=== PATIENT | female | born 1990 | race Caucasian/White ===

== ENCOUNTER 2016-06-04 02:53 | Emergency (ER) | payer OTHER ==
[2016-06-04 03:15] VITALS: BP 107/87; PULSE 67; TEMP 97.9; BMI 16.9
[2016-06-04] MEDS ORDERED: ONDANSETRON 4 MG/2 ML VIAL IVPUSH ONE (03:32)
--- NOTE | 2016-06-04 03:32 | PDOC ---
History of Present Illness - History of Present Illness Initial Comments: 06/04/16 03:59 Patient is a 26 year old female with significant medical hx of gastroparesis who is presenting to the ED with nausea and vomiting for several weeks. The patient has been having multiple episodes of nausea and vomiting per day; she is only able to tolerate oral intake on occasion. She is complaining of associated muscle cramping and dehydration. The patient is requesting fluids and electrolytes checked; she states that medication often worsens her symptoms. Denies fever, chills, or any other symptoms. <Shanika Cagle - Last Filed: 06/04/16 03:59> <Caesar Garcia - Last Filed: 06/04/16 05:10> - General Chief Complaint: Nausea/Vomiting Stated Complaint: VOMITING Past History <Shanika Cagle - Last Filed: 06/04/16 03:59> - Immunization History Immunization Up to Date: Yes - Psycho/Social/Smoking Cessation Hx Anxiety: Yes Suicidal Ideation: No Smoking History: Unknown if ever smoked Have you smoked in the past 12 months: No Number of Cigarettes Smoked Daily: 0 Cigars Per Day: 0 Information on smoking cessation initiated: No Hx Alcohol Use: No Drug/Substance Use Hx: No Substance Use Type: None <Caesar Garcia - Last Filed: 06/04/16 05:10> - Past Medical History Allergies/Adverse Reactions: Allergies Allergy/AdvReac Type Severity Reaction Status Date / Time No Known Allergies Allergy Verified 06/04/16 03:10 Home Medications: Ambulatory Orders NK [No Known Home Medication] 12/11/15 Review of Systems - Review of Systems Comments:: 06/04/16 04:01 GENERAL/CONSTITUTIONAL: Dehydration. No fever or chills. No weakness. HEAD, EYES, EARS, NOSE AND THROAT: No change in vision. No ear pain or discharge. No sore throat. CARDIOVASCULAR: No chest pain or shortness of breath. RESPIRATORY: No cough, wheezing, or hemoptysis. GASTROINTESTINAL: Nausea, vomiting. No diarrhea or constipation. GENITOURINARY: No dysuria, frequency, or change in urination. MUSCULOSKELETAL: Muscle cramping. No joint or muscle swelling. No neck or back pain. SKIN: No rash NEUROLOGIC: No headache, vertigo, loss of consciousness, or change in strength/ sensation. <Shanika Cagle Last Filed: 06/04/16 03:59> *Physical Exam - Vital Signs Last Vital Signs Temp Pulse Resp BP Pulse Ox 97.9 F 67 18 107/87 100 06/04/16 03:10 06/04/16 03:10 06/04/16 03:10 06/04/16 03:10 06/04/16 03:10 - Physical Exam Comments: 06/04/16 04:02 GENERAL: Dehydrated. Awake, alert, and fully oriented, in no acute distress HEAD: No signs of trauma EYES: PERRLA, EOMI, sclera anicteric, conjunctiva clear ENT: Auricles normal inspection, hearing grossly normal, nares patent, oropharynx clear without exudates. Dry mucosa FACE: Brent cheeks NECK: Normal ROM, supple, no lymphadenopathy, JVD, or masses LUNGS: Breath sounds equal, clear to auscultation bilaterally. No wheezes, and no crackles HEART: Regular rate and rhythm, normal S1 and S2, no murmurs, rubs or gallops ABDOMEN: Soft, nontender, normoactive bowel sounds. No guarding, no rebound. No masses EXTREMITIES: Normal range of motion, no edema. No clubbing or cyanosis. No cords, erythema, or tenderness NEUROLOGICAL: Cranial nerves II through XII grossly intact. Normal speech, normal gait SKIN: Warm, Dry, normal turgor, no rashes or lesions noted. ENDOCRINE: No increased thirst. No abnormal weight change. HEMATOLOGIC/LYMPHATIC: No anemia, easy bleeding, or history of blood clots. ALLERGIC/IMMUNOLOGIC: No hives or skin allergy. <Shanika Cagle - Last Filed: 06/04/16 03:59> - Vital Signs Last Vital Signs Temp Pulse Resp BP Pulse Ox 97.9 F 67 18 107/87 100 06/04/16 03:10 06/04/16 03:10 06/04/16 03:10 06/04/16 03:10 06/04/16 03:10 <Caesar Garcia - Last Filed: 06/04/16 05:10> ED Treatment Course - LABORATORY CBC & Chemistry Diagram: 06/04/16 04:10 06/04/16 04:10 <Caesar Garcia - Last Filed: 06/04/16 05:10> Medical Decision Making - Medical Decision Making 03/27/17 05:02 This is a 26yo F with h/o idiopathic gastroparesis and multiple episodes of n/v over the last two weeks. She feels as though her muscles are achy which is what she says she has experienced with low potassium. She has a mildly low K and would benefit from PO KCl 40mEq. She is refusing any and all antiemetics and would appreciate parenteral hydration. Clinically and objectively, she appears mildly dry and will be given NS. Will encourage close follow up with PMD within the next 48 hours and return if there is any change of symptoms. <Caesar Garcia - Last Filed: 06/04/16 05:10> *DC/Admit/Observation/Transfer - Attestations Scribe Attestion: 06/04/16 04:04 Documentation prepared by Shanika Cagle, acting as medical technologist hematology for Caesar Garcia MD. <Shanika Cagle - Last Filed: 06/04/16 03:59> - Discharge Dispostion Admit: No Decision to Admit order Date/Time: 06/04/16 05:00 <Caesar Garcia - Last Filed: 06/04/16 05:10> Diagnosis at time of Disposition: Nausea & vomiting Qualifiers: Vomiting type: unspecified Vomiting Intractability: non-intractable Qualified Code(s): R11.2 - Nausea with vomiting, unspecified - Discharge Dispostion Disposition: HOME Condition at time of disposition: Good - Referrals Referrals: STAFF,NOT ON [Primary Care Provider] - - Patient Instructions Additional Instructions: Please follow up with your PMD within the next 48 hours and if there is any change otherwise in your symptoms, please return immediately to the ED. Please make every effort to hydrate yourself as much as possible.
[2016-06-04 04:19] LABS: BASOPHIL 0.7 % (0-2.0); EOSINOPHIL 1.2 % (0-4.5); MCHC 34.5 g/dl (32.0-36.0); MEAN CELL VOLUME 86.8 fl (80-96); MEAN PLT VOLUME 7.1 fl (7.5-11.1); NEUTROPHILS 63.7 % (42.8-82.8); PLATELET COUNT 426 K/MM3 (134-434); RDW 13.5 % (11.6-15.6); WHITE BLOOD COUNT 6.7 K/mm3 (4.0-10.0)
[2016-06-04] MEDS ORDERED: SODIUM CHLORIDE 1,000 ML IV ONE (04:19)
[2016-06-04 04:45] LABS: ALBUMIN 4.4 g/dl (3.4-5.0); ALK PHOS 82 U/L (45-117); ANION GAP 12 (8-16); BILIRUBIN,TOTAL 0.9 mg/dL (0.2-1.0); CALCIUM 9.7 mg/dL (8.5-10.1); CO2 34 mmol/L (21-32); CREATININE 0.7 mg/dL (0.55-1.02); GLUCOSE,RANDOM 85 mg/dL (74-106); MAGNESIUM 2.9 mg/dL (1.8-2.4); SGPT/ALT 15 U/L (12-78); TOT PROT 8.1 g/dl (6.4-8.2)
[2016-06-04 04:51] LABS: SGOT/AST 21 U/L (15-37)
[2016-06-04] MEDS ORDERED: POTASSIUM CHLORIDE TABS 20 MEQ TABLET.ER (FP) PO ONE ×2 (04:53→04:55)
[2016-06-04] MEDS ORDERED: POTASSIUM CHLORIDE 40 MEQ/30 ML UNIT DOSE CUP ONE (04:57)
[2016-06-04] MEDS ORDERED: POTASSIUM CHLORIDE 40 MEQ/30 ML UNIT DOSE CUP PO ONE (05:01)
== END 2016-06-04 06:17 | disposition home or self-care (01) ==
LOC: JER 02:53
PROC: 3E0337Z Introduction of Electrolytic and Water Balance Substance into Peripheral Vein, Percutaneous Approach (ICD-10-PCS; principal; 2016-06-04)
DX: R11.2 Nausea with vomiting, unspecified (principal); K31.84 Gastroparesis; M79.1 Myalgia; E87.6 Hypokalemia; E86.0 Dehydration
CPT/HCPCS: 36415; 80053; 83735; 84100; 85025; 99282-25

== ENCOUNTER 2016-07-29 01:10 | Emergency (ER) | payer OTHER ==
--- NOTE | 2016-07-29 02:01 | PDOC ---
History of Present Illness - General History Source: Patient Exam Limitations: No Limitations - History of Present Illness Initial Comments: 07/29/16 01:58 26yo Female patient presents to ED requesting that her electrolytes be checked. Patient states she has been vomiting for the past month. This patient has been to this ED numerous times for the same request. She states her PCP will not honor her request. She denies any other complaints at this time. <Hannah Lewis - Last Filed: 07/29/16 01:56> <Loren France - Last Filed: 07/29/16 03:42> - General Stated Complaint: VOMITING/NEEDS ELECTROLYTES CHECKED Time Seen by Provider: 07/29/16 01:17 Past History - Travel Traveled outside of the country in the last 30 days: No Close contact w/someone who was outside of country & ill: No - Immunization History Immunization Up to Date: Yes - Psycho/Social/Smoking Cessation Hx Anxiety: Yes Suicidal Ideation: No Smoking History: Unknown if ever smoked Have you smoked in the past 12 months: No Number of Cigarettes Smoked Daily: 0 Cigars Per Day: 0 Hx Alcohol Use: No Drug/Substance Use Hx: No Substance Use Type: None <Hannah Lewis - Last Filed: 07/29/16 01:56> <Loren France - Last Filed: 07/29/16 03:42> - Past Medical History Allergies/Adverse Reactions: Allergies Allergy/AdvReac Type Severity Reaction Status Date / Time No Known Allergies Allergy Verified 07/29/16 03:32 Home Medications: Ambulatory Orders NK [No Known Home Medication] 12/11/15 Review of Systems - Review of Systems Able to Perform ROS?: Yes Is the patient limited [place]an proficient: No Constitutional: No: Symptoms Reported, See HPI, Chills, Diaphoresis, Fever, Loss of Appetite, Malaise, Night Sweats, Weakness, Weight Stable, Unintentional Wgt. Loss, Unexplained wgt Loss, Other Respiratory: No: Symptoms reported, See HPI, Cough, Orthopnea, Shortness of Breath, SOB with Exertion, SOB at Rest, Stridor, Wheezing, Productive cough, Hemoptysis, Other Cardiac (ROS): No: Symptoms Reported, See HPI, Chest Pain, Edema, Irregular Heart Rate, Lightheadedness, Palpitations, Syncope, Chest Tightness, Other ABD/GI: Yes: Nausea, Vomiting. No: Symptoms Reported, See HPI, Abdominal Distended, Abd. Pain w/ defecation, Blood Streaked Bowels, Constipated, Diarrhea , Difficulty Swallowing, Poor Appetite, Poor Fluid Intake, Rectal Bleeding, Indigestion, Abdominal cramping, Tarry Stools, Other : No: Symptoms Reported, See HPI, Burning, Dysuria, Discharge, Frequency, Flank Pain, Hematuria, Incontinence, Pain, Urgency, Testicular Mass, Testicular Swelling, Lesions, Testicular Pain, Other Musculoskeletal: No: Symptoms Reported, See HPI, Back Pain, Gout, Joint Pain, Joint Swelling, Muscle Pain, Muscle Weakness, Neck Pain, Joint Stiffness, Other All Other Systems: Reviewed and Negative <Hannah Lewis - Last Filed: 07/29/16 01:56> *Physical Exam - Physical Exam General Appearance: Yes: Nourished, Appropriately Dressed. No: Apparent Distress, Mild Distress, Moderate Distress, Severe Distress Neck: positive: Trachea midline, Supple. negative: Stridor, Lymphadenopathy (R) , Lymphadenopathy (L) Respiratory/Chest: positive: Lungs Clear, Normal Breath Sounds. negative: Respiratory Distress, Accessory Muscle Use, Labored Respiration, Rapid RR, Rales , Rhonchi, Stridor, Wheezing Cardiovascular: positive: Regular Rhythm, Regular Rate Gastrointestinal/Abdominal: positive: Normal Bowel Sounds, Soft. negative: Distended, Guarding, Rebound, Tenderness Musculoskeletal: positive: Normal Inspection. negative: CVA Tenderness, Vertebral Tenderness Extremity: positive: Normal Capillary Refill, Normal Inspection, Normal Range of Motion. 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 intact, Fully Oriented, Alert, Normal Mood/ Affect, Normal Response, Motor Strength 5/5 <Hannah Lewis - Last Filed: 07/29/16 01:56> - Vital Signs Last Vital Signs Temp Pulse Resp BP Pulse Ox 98.2 F 65 17 100/56 100 07/29/16 02:24 07/29/16 02:24 07/29/16 02:24 07/29/16 02:24 07/29/16 02:24 <Loren France - Last Filed: 07/29/16 03:42> ED Treatment Course - LABORATORY CBC & Chemistry Diagram: 07/29/16 02:14 07/29/16 02:15 - ADDITIONAL ORDERS Additional order review: Laboratory Results 07/29/16 02:15 Sodium 136 Potassium 3.4 L Chloride 95 L Carbon Dioxide 31 Anion Gap 10 BUN 21 H D Creatinine 1.1 H D Creat Clearance w eGFR > 60 Random Glucose 127 H D Calcium 9.3 Total Bilirubin 1.0 AST 21 ALT 19 D Alkaline Phosphatase 56 D Total Protein 6.9 Albumin 3.9 07/29/16 02:14 RBC 4.37 MCV 86.8 MCHC 33.3 RDW 13.1 MPV 7.9 D Neutrophils % 65.8 Lymphocytes % 28.7 Monocytes % 4.4 Eosinophils % 0.5 Basophils % 0.6 - Medications Given in the ED: ED Medications Discontinued Medications Generic Name Dose Route Start Last Admin Trade Name Freq PRN Reason Stop Dose Admin Potassium Chloride 40 meq 07/29/16 03:06 07/29/16 03:23 K-Dur - PO 07/29/16 03:07 Not Given ONCE ONE Potassium Chloride 40 meq 07/29/16 03:20 07/29/16 03:31 Potassium Chloride Oral Liquid PO 07/29/16 03:21 40 meq ONCE ONE Administration <Loren France - Last Filed: 07/29/16 03:42> *DC/Admit/Observation/Transfer <Hannah Lewis - Last Filed: 07/29/16 01:56> - Discharge Dispostion Admit: No <Loren France - Last Filed: 07/29/16 03:42> Diagnosis at time of Disposition: Eating disorder, unspecified, Hyponatremia - Discharge Dispostion Disposition: HOME Condition at time of disposition: Improved - Patient Instructions Printed Discharge Instructions: Anorexia-Adult, Eating Disorders: When Food and Weight Take Control
[2016-07-29 02:22] LABS: BASOPHIL 0.6 % (0-2.0); EOSINOPHIL 0.5 % (0-4.5); MCH 28.9 pg (25.7-33.7); MCHC 33.3 g/dl (32.0-36.0); MEAN CELL VOLUME 86.8 fl (80-96); MEAN PLT VOLUME 7.9 fl (7.5-11.1); NEUTROPHILS 65.8 % (42.8-82.8); PLATELET COUNT 357 K/MM3 (134-434); RDW 13.1 % (11.6-15.6); WHITE BLOOD COUNT 6.6 K/mm3 (4.0-10.0)
[2016-07-29 02:28] VITALS: BMI 15.9
[2016-07-29 02:48] LABS: ALBUMIN 3.9 g/dl (3.4-5.0); ANION GAP 10 (8-16); CALCIUM 9.3 mg/dL (8.5-10.1); CO2 31 mmol/L (21-32); CREATININE 1.1 mg/dL (0.55-1.02); GLUCOSE,RANDOM 127 mg/dL (74-106); SGOT/AST 21 U/L (15-37); SGPT/ALT 19 U/L (12-78); TOT PROT 6.9 g/dl (6.4-8.2)
[2016-07-29 02:49] LABS: ALK PHOS 56 U/L (45-117)
[2016-07-29] MEDS ORDERED: POTASSIUM CHLORIDE TABS 20 MEQ TABLET.ER (FP) PO ONE ×2 (03:06→03:14)
[2016-07-29] MEDS ORDERED: POTASSIUM CHLORIDE ORAL LIQUID 20 MEQ/15 ML PO ONE (03:20)
[2016-07-29] MEDS ORDERED: POTASSIUM CHLORIDE ORAL LIQUID 20 MEQ/15 ML ONE (03:28)
[2016-07-29 03:47] VITALS: BP 105/60; PULSE 67; TEMP 98
== END 2016-07-29 03:49 | disposition home or self-care (01) ==
LOC: JER 01:10
DX: F50.89 Other specified eating disorder (principal); R63.0 Anorexia; E87.1 Hypo-osmolality and hyponatremia; Z68.1 Body mass index [BMI] 19.9 or less, adult
CPT/HCPCS: 36415; 80053; 85025; 99282-25

== ENCOUNTER 2016-08-23 01:35 | Emergency (ER) | payer OTHER ==
[2016-08-23 01:51] VITALS: BP 94/56; PULSE 46; TEMP 98.1; BMI 15.9
--- NOTE | 2016-08-23 01:56 | PDOC ---
History of Present Illness - General History Source: Patient Exam Limitations: No Limitations - History of Present Illness Initial Comments: 08/23/16 02:01 The patient is a 26 year old female with significant past medical history of gastroparesis who presents to the ED requesting that her electrolytes be checked. Patient reports she has had several episodes of vomiting and diarrhea within the past few days. States that she ran out of her potassium medications. This patient has been to this ED numerous times for the same request. She states her PCP will not honor her request. She denies any other complaints at this time. <Addie Murdock - Last Filed: 08/23/16 02:01> - General History Source: Patient <Jesus Foote - Last Filed: 08/23/16 05:55> - General Chief Complaint: Nausea/Vomiting Stated Complaint: VOMITING Time Seen by Provider: 08/23/16 01:56 Past History <Addie Murdock - Last Filed: 08/23/16 02:01> - Past Medical History Cardiac Disorders: Yes (low HR "in 40's") GI Disorders: Yes (chr gastroparesis, "can't be fixed") Other medical history: chr low potassium - Immunization History Immunization Up to Date: Yes - Psycho/Social/Smoking Cessation Hx Anxiety: Yes Suicidal Ideation: No Smoking History: Never smoked Have you smoked in the past 12 months: No Number of Cigarettes Smoked Daily: 0 Cigars Per Day: 0 Hx Alcohol Use: No Drug/Substance Use Hx: No Substance Use Type: None <Jesus Foote - Last Filed: 08/23/16 05:55> - Past Medical History Allergies/Adverse Reactions: Allergies Allergy/AdvReac Type Severity Reaction Status Date / Time No Known Allergies Allergy Verified 08/23/16 02:11 Home Medications: Ambulatory Orders Potassium Chloride Oral Soln [KCl Oral Solution] 20 meq PO BID #60 cup 08/23/16 Review of Systems - Review of Systems Able to Perform ROS?: Yes Comments:: 08/23/16 02:01 CONSTITUTIONAL: Absent: fever, no chills, no fatigue EYES: Absent: visual changes ENT: Absent: ear pain, no sore throat CARDIOVASCULAR: Absent: chest pain, no palpitations RESPIRATORY: Absent: cough, no SOB GI: +vomiting, diarrhea Absent: abdominal pain, no constipation GENITOURINARY: Absent: dysuria, no frequency, no hematuria MUSCULOSKELETAL: Absent: back pain, no arthralgia, no myalgia SKIN: Absent: rash NEURO: Absent: headache <Addie Murdock - Last Filed: 08/23/16 02:01> *Physical Exam - Vital Signs Last Vital Signs Temp Pulse Resp BP Pulse Ox 98.1 F 46 L 16 94/56 100 08/23/16 01:49 08/23/16 01:49 08/23/16 01:49 08/23/16 01:49 08/23/16 01:49 - Physical Exam Comments: 08/23/16 02:01 GENERAL: Pt appears to be thin. Mild distress. HEENT: Normocephalic, atraumatic. PERRL, EOM intact. Dry mucous membranes. CARDIOVASCULAR: Normal S1, S2. Regular rate and rhythm. PULMONARY: Clear to auscultation bilaterally. ABDOMEN: Soft, non-distended, non-tender. EXTREMITIES: Normal ROM in all four extremities. No gross deformities. SKIN: Warm, dry. No rash NEUROLOGICAL: No focal neurological deficits. <Arthur Murdockvita - Last Filed: 08/23/16 02:01> - Vital Signs Last Vital Signs Temp Pulse Resp BP Pulse Ox 98.1 F 46 L 16 94/56 100 08/23/16 01:49 08/23/16 01:49 08/23/16 01:49 08/23/16 01:49 08/23/16 01:49 <Jesus Foote - Last Filed: 08/23/16 05:55> ED Treatment Course - LABORATORY CBC & Chemistry Diagram: 08/23/16 02:15 08/23/16 02:15 <Jesus Foote - Last Filed: 08/23/16 05:55> Medical Decision Making - Medical Decision Making 08/23/16 04:54 Dr. Foote: The scribe's documentation has been prepared under my direction and personally reviewed by me in its entirery. I confirm that the note above accurately reflects all work, treatment, procedures, and medical decision making performed by me. <Jesus Foote - Last Filed: 08/23/16 05:55> *DC/Admit/Observation/Transfer - Attestations Scribe Attestion: 08/23/16 02:02 Documentation prepared by Addie Murdock, acting as faculty i on call medical assistant for Jesus Foote MD/DO. <Addie Murdock - Last Filed: 08/23/16 02:01> - Discharge Dispostion Admit: No <Jesus Foote - Last Filed: 08/23/16 05:55> Diagnosis at time of Disposition: Hypokalemia, Gastroparesis - Prescriptions Prescriptions: Potassium Chloride Oral Soln [KCl Oral Solution] 20 meq PO BID #60 cup
[2016-08-23] MEDS ORDERED: ONDANSETRON 4 MG/2 ML VIAL IVPUSH STA (01:58)
[2016-08-23] MEDS ORDERED: FAMOTIDINE 20 MG/50 ML IVPB 20 MG in PREMIX 50 IVPB ONE (01:58)
[2016-08-23] MEDS: SODIUM CHLORIDE 1,000 ML IV STA ×2 (02:19→03:01)
[2016-08-23 02:24] LABS: BASOPHIL 0.9 % (0-2.0); EOSINOPHIL 0.8 % (0-4.5); MCH 28.9 pg (25.7-33.7); MCHC 33.7 g/dl (32.0-36.0); MEAN CELL VOLUME 85.6 fl (80-96); MEAN PLT VOLUME 7.9 fl (7.5-11.1); PLATELET COUNT 313 K/MM3 (134-434); RDW 12.8 % (11.6-15.6); WHITE BLOOD COUNT 4.8 K/mm3 (4.0-10.0)
[2016-08-23 02:46] LABS: ALBUMIN 3.5 g/dl (3.4-5.0); ALK PHOS 49 U/L (45-117); ANION GAP 10 (8-16); BILIRUBIN,TOTAL 1.2 mg/dL (0.2-1.0); CO2 34 mmol/L (21-32); CREATININE 0.8 mg/dL (0.55-1.02); GLUCOSE,RANDOM 94 mg/dL (74-106); MAGNESIUM 2.3 mg/dL (1.8-2.4); SGOT/AST 17 U/L (15-37); SGPT/ALT 25 U/L (12-78); TOT PROT 6.1 g/dl (6.4-8.2)
[2016-08-23] MEDS ORDERED: POTASSIUM CHLORIDE TABS 20 MEQ TABLET.ER (FP) PO ONE ×2 (02:50→02:53)
[2016-08-23] MEDS ORDERED: KCL 10 MEQ IVPB 100 ML IVPB ONE (02:53)
[2016-08-23] MEDS ORDERED: POTASSIUM CHLORIDE ORAL LIQUID 20 MEQ/15 ML ONE ×4 (03:00→04:44)
[2016-08-23] MEDS: KCL 10 MEQ IVPB 100 ML IVPB SCH ×2 (03:01→04:26)
[2016-08-23] MEDS ORDERED: POTASSIUM CHLORIDE ORAL LIQUID 20 MEQ/15 ML PO ONE ×3 (03:14→04:37)
== END 2016-08-23 05:46 | disposition home or self-care (01) ==
LOC: JER 01:35
DX: E87.6 Hypokalemia (principal); K31.84 Gastroparesis
CPT/HCPCS: 36415; 80053; 81003; 83690; 83735; 84703; 85025; 99281-25

== ENCOUNTER 2016-09-22 02:19 | Emergency (ER) | payer OTHER ==
--- NOTE | 2016-09-22 02:55 | PDOC ---
History of Present Illness - General History Source: Patient Exam Limitations: No Limitations - History of Present Illness Initial Comments: 09/22/16 03:03 The patient is a 26 year old female with a significant past medical history of gastroparesis and gastritis who presents to the ED for a prescription refill. The patient reports she ran out of her potassium medication and has low potassium levels. She states she takes 60 mg of potassium twice a day and wants a refill. Patient reports her potassium can drop as low as 2.7. Denies fevers or chills. Denies any other symptoms. <Rachel Edouard - Last Filed: 09/22/16 03:03> - General History Source: Patient Exam Limitations: No Limitations <Rodney Young - Last Filed: 09/23/16 02:28> - General Stated Complaint: WEAKNESS Time Seen by Provider: 09/22/16 02:50 Past History <Rachel Edouard - Last Filed: 09/22/16 03:03> - Past Medical History Cardiac Disorders: Yes (low HR "in 40's") GI Disorders: Yes (chr gastroparesis, "can't be fixed") - Immunization History Immunization Up to Date: Yes - Psycho/Social/Smoking Cessation Hx Anxiety: Yes Suicidal Ideation: No Smoking History: Never smoked Have you smoked in the past 12 months: No Number of Cigarettes Smoked Daily: 0 Cigars Per Day: 0 Hx Alcohol Use: No Drug/Substance Use Hx: No Substance Use Type: None <Rodney Young - Last Filed: 09/23/16 02:28> - Past Medical History Allergies/Adverse Reactions: Allergies Allergy/AdvReac Type Severity Reaction Status Date / Time No Known Allergies Allergy Verified 08/23/16 02:11 Home Medications: Ambulatory Orders Dicyclomine HCl [Bentyl -] 10 mg PO Q6H PRN #28 capsule 09/22/16 Potassium Chloride Oral Soln [KCl Oral Solution] 60 meq PO BID #90 cup 09/22/16 Review of Systems - Review of Systems Able to Perform ROS?: Yes Comments:: 09/22/16 03:04 GENERAL/CONSTITUTIONAL: No fever or chills. No weakness. HEAD, EYES, EARS, NOSE AND THROAT: No change in vision. No ear pain or discharge. No sore throat. CARDIOVASCULAR: No chest pain or shortness of breath. RESPIRATORY: No cough, wheezing, or hemoptysis. GASTROINTESTINAL: No nausea, vomiting, diarrhea or constipation. GENITOURINARY: No dysuria, frequency, or change in urination. MUSCULOSKELETAL: No joint or muscle swelling or pain. No neck or back pain. SKIN: No rash NEUROLOGIC: No headache, vertigo, loss of consciousness, or change in strength/ sensation. ENDOCRINE: No increased thirst. No abnormal weight change. HEMATOLOGIC/LYMPHATIC: + low potassium levels. No anemia, easy bleeding, or history of blood clots. ALLERGIC/IMMUNOLOGIC: No hives or skin allergy. All Other Systems: Reviewed and Negative <Rachel Edouard - Last Filed: 09/22/16 03:03> *Physical Exam - Vital Signs Last Vital Signs Temp Pulse Resp BP Pulse Ox 98.3 F 67 16 105/83 99 09/22/16 02:50 09/22/16 02:50 09/22/16 02:50 09/22/16 02:50 09/22/16 02:50 - Physical Exam Comments: 09/22/16 03:04 GENERAL:+ cachectic, thin. Awake, alert, and fully oriented, in no acute distress HEAD: No signs of trauma EYES: PERRLA, EOMI, sclera anicteric, conjunctiva clear ENT: Auricles normal inspection, hearing grossly normal, nares patent, oropharynx clear without exudates. Moist mucosa NECK: Normal ROM, supple, no lymphadenopathy, JVD, or masses LUNGS: Breath sounds equal, clear to auscultation bilaterally. No wheezes, and no crackles HEART: Regular rate and rhythm, normal S1 and S2, no murmurs, rubs or gallops ABDOMEN: Soft, nontender, normoactive bowel sounds. No guarding, no rebound. No masses EXTREMITIES: Normal range of motion, no edema. No clubbing or cyanosis. No cords, erythema, or tenderness NEUROLOGICAL: Normal speech SKIN: Warm, Dry, normal turgor, no rashes or lesions noted. <Rachel Edouard - Last Filed: 09/22/16 03:03> ED Treatment Course - LABORATORY CBC & Chemistry Diagram: 09/22/16 04:00 09/22/16 08:30 <Rodney Young - Last Filed: 09/23/16 02:28> Medical Decision Making - Medical Decision Making 09/22/16 03:31 A portion of this note was documented by scribe services under my direction. I have reviewed the details of the note, within reason, and agree with the documentation with the following case summary and management plan written by me. Patient treated in the ED. Nursing notes are reviewed and incorporated into the medical decision-making. Vital signs reviewed. Peripheral IV access obtained by the nurse, laboratory studies are drawn and sent, reviewed and interpreted by myself. Vital Signs Temp Pulse Resp BP Pulse Ox 98.3 F 67 16 105/83 99 09/22/16 02:50 09/22/16 02:50 09/22/16 02:50 09/22/16 02:50 09/22/16 02:50 26-year-old female with past mental history of gastritis and gastroparesis and persistent hypokalemia presents to the emergency department requesting refill of her 60 mEq of potassium twice a day. Patient states that she had ran out. However, she denies any symptoms at this time. She does request that she get her potassium checked. Will draw labs, replete, and refill prescription for 60 meq potassium BID. 09/22/16 06:41 CBC, BMP 09/22/16 04:00 09/22/16 05:10 CMP Sodium 136 mmol/L (136-145) 09/22/16 05:10 Potassium 2.6 mmol/L (3.5-5.1) L* 09/22/16 05:10 Chloride 90 mmol/L (98-107) L 09/22/16 05:10 Carbon Dioxide 38 mmol/L (21-32) H 09/22/16 05:10 Anion Gap 8 (8-16) 09/22/16 05:10 BUN 22 mg/dL (7-18) H D 09/22/16 05:10 Creatinine 0.7 mg/dL (0.55-1.02) 09/22/16 05:10 Creat Clearance w eGFR > 60 (>60) 09/22/16 05:10 Random Glucose 87 mg/dL (74-106) 09/22/16 05:10 Calcium 9.2 mg/dL (8.5-10.1) 09/22/16 05:10 Magnesium 2.0 mg/dL (1.8-2.4) 09/22/16 05:10 Total Bilirubin 0.9 mg/dL (0.2-1.0) D 09/22/16 05:10 AST 22 U/L (15-37) D 09/22/16 05:10 ALT 26 U/L (12-78) 09/22/16 05:10 Alkaline Phosphatase 40 U/L (45-117) L 09/22/16 05:10 Total Protein 6.4 g/dl (6.4-8.2) 09/22/16 05:10 Albumin 3.5 g/dl (3.4-5.0) 09/22/16 05:10 Potassium is 2.6. 60 meq oral potassium ordered. Will repeat CMP. If pt continues to remain persistently hypokalemic, pt should be admitted to the hospital. Case signed out to [facility] ED attending DR. Montenegro for further management and disposition. <Rodney Young - Last Filed: 09/23/16 02:28> *DC/Admit/Observation/Transfer - Attestations Scribe Attestion: 09/22/16 03:04 Documentation prepared by Rachel Edouard, acting as medical research scientist for Rodney Young MD <Rachel Edouard - Last Filed: 09/22/16 03:03> <Rodney Young - Last Filed: 09/23/16 02:28> Diagnosis at time of Disposition: Hypokalemia, Eating disorder, unspecified, Low weight - Discharge Dispostion Disposition: HOME Condition at time of disposition: Improved - Prescriptions Prescriptions: Dicyclomine HCl [Bentyl -] 10 mg PO Q6H PRN #28 capsule PRN Reason: Indigestion Potassium Chloride Oral Soln [KCl Oral Solution] 60 meq PO BID #90 cup - Patient Instructions Printed Discharge Instructions: DI for Hypokalemia
[2016-09-22 03:00] VITALS: BMI 13.9
[2016-09-22 04:05] LABS: BASOPHIL 0.5 % (0-2.0); EOSINOPHIL 0.4 % (0-4.5); MCH 28.5 pg (25.7-33.7); MEAN CELL VOLUME 83.9 fl (80-96); MEAN PLT VOLUME 7.8 fl (7.5-11.1); NEUTROPHILS 68.2 % (42.8-82.8); PLATELET COUNT 375 K/MM3 (134-434); RDW 13.3 % (11.6-15.6); WHITE BLOOD COUNT 5.7 K/mm3 (4.0-10.0)
[2016-09-22 05:41] LABS: ALBUMIN 3.5 g/dl (3.4-5.0); ALK PHOS 40 U/L (45-117); ANION GAP 8 (8-16); BILIRUBIN,TOTAL 0.9 mg/dL (0.2-1.0); CALCIUM 9.2 mg/dL (8.5-10.1); CO2 38 mmol/L (21-32); CREATININE 0.7 mg/dL (0.55-1.02); GLUCOSE,RANDOM 87 mg/dL (74-106); SGOT/AST 22 U/L (15-37); SGPT/ALT 26 U/L (12-78); TOT PROT 6.4 g/dl (6.4-8.2)
[2016-09-22] MEDS ORDERED: POTASSIUM CHLORIDE ORAL LIQUID 20 MEQ/15 ML PO ONE (05:45)
[2016-09-22] MEDS ORDERED: POTASSIUM CHLORIDE ORAL LIQUID 20 MEQ/15 ML ONE (05:48)
[2016-09-22 08:31] VITALS: TEMP 98
[2016-09-22 09:00] LABS: ALBUMIN 3.5 g/dl (3.4-5.0); ALK PHOS 41 U/L (45-117); ANION GAP 7 (8-16); CALCIUM 9.4 mg/dL (8.5-10.1); CO2 38 mmol/L (21-32); CREATININE 0.8 mg/dL (0.55-1.02); GLUCOSE,RANDOM 87 mg/dL (74-106); SGOT/AST 20 U/L (15-37); SGPT/ALT 28 U/L (12-78); TOT PROT 6.4 g/dl (6.4-8.2)
--- NOTE | 2016-09-22 09:51 | PDOC ---
*Physical Exam - Vital Signs Last Vital Signs Temp Pulse Resp BP Pulse Ox 98 F 60 18 102/65 98 09/22/16 08:28 09/22/16 08:28 09/22/16 08:28 09/22/16 08:28 09/22/16 08:28 ED Treatment Course - LABORATORY CBC & Chemistry Diagram: 09/22/16 04:00 09/22/16 08:30 - ADDITIONAL ORDERS Additional order review: Laboratory Results 09/22/16 09/22/16 08:30 05:10 Sodium 136 136 Potassium 3.7 D 2.6 L* Chloride 91 L 90 L Carbon Dioxide 38 H 38 H Anion Gap 7 L 8 BUN 21 H 22 H D Creatinine 0.8 0.7 Creat Clearance w eGFR > 60 > 60 Random Glucose 87 87 Calcium 9.4 9.2 Magnesium 2.0 Total Bilirubin 1.0 0.9 D AST 20 22 D ALT 28 26 Alkaline Phosphatase 41 L 40 L Total Protein 6.4 6.4 Albumin 3.5 3.5 09/22/16 04:00 RBC 4.40 MCV 83.9 MCHC 34.0 RDW 13.3 MPV 7.8 Neutrophils % 68.2 Lymphocytes % 25.0 D Monocytes % 5.9 Eosinophils % 0.4 Basophils % 0.5 - Medications Given in the ED: ED Medications Discontinued Medications Generic Name Dose Route Start Last Admin Trade Name Freq PRN Reason Stop Dose Admin Potassium Chloride 60 meq 09/22/16 05:45 09/22/16 05:47 Potassium Chloride Oral Liquid PO 09/22/16 05:46 60 meq ONCE ONE Administration Medical Decision Making - Medical Decision Making Pt endorsed to me by Dr. Young at shift change. Repeat CMP shows improvement in the potassium. I discussed with her, she requested refill for her potassium- she takes 60 mEq BID, so I gave her a 2 week supply (initial rx did not transmit to pharmacy correctly, so I verbally ordered 2 week supply). *DC/Admit/Observation/Transfer Diagnosis at time of Disposition: Hypokalemia, Eating disorder, unspecified, Low weight - Discharge Dispostion Disposition: HOME Condition at time of disposition: Improved Admit: No - Prescriptions Prescriptions: Dicyclomine HCl [Bentyl -] 10 mg PO Q6H PRN #28 capsule PRN Reason: Indigestion Potassium Chloride Oral Soln [KCl Oral Solution] 60 meq PO BID #90 cup - Patient Instructions Printed Discharge Instructions: DI for Hypokalemia
[2016-09-22 10:35] VITALS: BP 104/58; PULSE 62
== END 2016-09-22 10:35 | disposition home or self-care (01) ==
LOC: JER 02:19
DX: E87.6 Hypokalemia (principal); R53.1 Weakness; F50.9 Eating disorder, unspecified
CPT/HCPCS: 36415; 80053; 83735; 85025; 99284-25

== ENCOUNTER → 2017-02-24 | Emergency (ER) | payer OTHER ==
[2017-02-24 02:34] VITALS: BP 107/70; PULSE 58; TEMP 98.1; BMI 14.7
--- NOTE | 2017-02-24 03:13 | PDOC ---
History of Present Illness - General Chief Complaint: Weakness Stated Complaint: SEVERE DEHYDRATION Time Seen by Provider: 02/24/17 03:06 - History of Present Illness Initial Comments: 02/24/17 03:18 Ms. Scott is a 26 yo female w/ pmh of self reported gastroparesis and ADD with possible undiagnosed eating disorder who presents complaining of a 4 day history of vomiting with 3 days of diarrhea. She reports that she believes her potassium is low and would like hydration and her potassium levels checked. She reports that she has been eating tuna salad and chicken salad occasionally but throwing them up intermittently. She also believes she may have pulled a muscle in her abdomen from vomiting. The patient denies chest pain, shortness of breath, headache and dizziness. Denies fever, chills, nausea, vomit, diarrhea and constipation. Denies dysuria, frequency, urgency and hematuria. Allergies: NKDA Past History - Past Medical History Allergies/Adverse Reactions: Allergies Allergy/AdvReac Type Severity Reaction Status Date / Time No Known Allergies Allergy Verified 02/24/17 02:32 Home Medications: Ambulatory Orders Potassium Chloride [K-Dur -] 40 meq PO BID #40 tablet.er 01/15/17 Cardiac Disorders: Yes (low HR "in 40's") COPD: No DVT: No Dementia: No Diabetes: No GI Disorders: Yes (chr gastroparesis, "can't be fixed") - Immunization History Immunization Up to Date: Yes - Suicide/Smoking/Psychosocial Hx Smoking History: Unknown if ever smoked Have you smoked in the past 12 months: No Number of Cigarettes Smoked Daily: 0 Cigars Per Day: 0 Information on smoking cessation initiated: No Hx Alcohol Use: No Drug/Substance Use Hx: No Substance Use Type: None Review of Systems - Review of Systems Comments:: 02/24/17 03:22 GENERAL/CONSTITUTIONAL: +Self reported weakness. HEAD, EYES, EARS, NOSE AND THROAT: No change in vision. No ear pain or discharge. No sore throat. CARDIOVASCULAR: No chest pain or shortness of breath RESPIRATORY: No cough, wheezing, or hemoptysis. GASTROINTESTINAL: +Frequent nausea, vomiting, and diarrhea as described above. GENITOURINARY: No dysuria, frequency, or change in urination. MUSCULOSKELETAL: No joint or muscle swelling or pain. No neck or back pain. SKIN: No rash NEUROLOGIC: No headache, vertigo, loss of consciousness, or change in strength/ sensation. ENDOCRINE: No increased thirst. No abnormal weight change HEMATOLOGIC/LYMPHATIC: No anemia, easy bleeding, or history of blood clots. ALLERGIC/IMMUNOLOGIC: No hives or skin allergy. *Physical Exam - Vital Signs Last Vital Signs Temp Pulse Resp BP Pulse Ox 98.1 F 58 L 14 107/70 100 02/24/17 02:32 02/24/17 02:32 02/24/17 02:32 02/24/17 02:32 02/24/17 02:32 - Physical Exam Comments: 02/24/17 03:24 GENERAL: Awake, alert, and fully oriented, in no acute distress HEAD: No signs of trauma, normocephalic, atraumatic EYES: PERRLA, EOMI, sclera anicteric, conjunctiva clear ENT: Auricles normal inspection, hearing grossly normal, nares patent, oropharynx clear without exudates. Moist mucosa NECK: Normal ROM, supple, no lymphadenopathy, JVD, or masses LUNGS: No distress, speaks full sentences, clear to auscultation bilaterally HEART: Regular rate and rhythm, normal S1 and S2, no murmurs, rubs or gallops, peripheral pulses normal and equal bilaterally. ABDOMEN: +TTP on R upper and lower quadrants. Soft, normoactive bowel sounds. No guarding, no rebound. No masses EXTREMITIES: Normal inspection, Normal range of motion, no edema. No clubbing or cyanosis. NEUROLOGICAL: Cranial nerves II through XII grossly intact. Normal speech, normal gait, no focal sensorimotor deficits SKIN: Warm, Dry, normal turgor, no rashes or lesions noted. Medical Decision Making - Medical Decision Making 02/24/17 03:25 Patient became irate during interview and eloped from ER. *DC/Admit/Observation/Transfer Diagnosis at time of Disposition: Dehydration - Discharge Dispostion Disposition: ELOPED - Referrals - Patient Instructions - Post Discharge Activity
== END | disposition left against medical advice (07) ==
LOC: JER 01:49
DX: E86.0 Dehydration (principal); F50.9 Eating disorder, unspecified
CPT/HCPCS: 99281-25